=== PATIENT | female | born 1960 | race Caucasian/White ===

== ENCOUNTER 2016-08-19 15:56 | Emergency (ER) | payer OTHER ==
[~2016-08-19] VITALS: Ht 167.6 cm; Wt 78.9 kg
--- NOTE | 2016-08-19 16:47 | RADIOLOGY REPORT ---
EXAMINATION: XR KNEE, RIGHT CLINICAL INFORMATION: Pain and swelling COMPARISON: 08/25/2015 x-ray TECHNIQUE: Four views of the right knee. FINDINGS: There are advanced degenerative changes of the right knee joint involving the patellofemoral and tibiofemoral compartments. There is significant narrowing of the medial tibiofemoral joint space with sclerotic changes of the articular surface of the tibia and femur and juxta-articular osteophytosis. No acute fracture or dislocation. No sizable joint effusion. IMPRESSION: Advanced right knee DJD.
[2016-08-19] MEDS ORDERED: CITALOPRAM HBR20 MG PO (16:56)
[2016-08-19] MEDS ORDERED: NAPROXEN375 M2 PO (16:56)
[2016-08-19] MEDS ORDERED: MULTI-DAY VITA1 EACH PO (16:56)
[2016-08-19] MEDS ORDERED: LORAZEPAM0.5 M1 PO (16:57)
--- NOTE | 2016-08-19 17:30 | ED UPPER/LOWER EXTREMITY COMPL ---
History of Present Illness General Chief Complaint: Lower Extremity Injury Stated Complaint: RT KNEE PAIN Source: patient, old records Exam Limitations: no limitations Vital Signs & Intake/Output Vital Signs & Intake/Output Vital Signs Date Time Temp Pulse Resp B/P B/P Pulse O2 O2 Flow FiO2 Mean Ox Delivery Rate 08/19 1809 99 Room Air 08/19 1805 98.3 89 15 118/78 100 Room Air 08/19 1609 97.6 64 15 117/66 97 Room Air Room Air Allergies Coded Allergies: Penicillins (Intermediate, "SWELLING" PER PT EYES AND FACE 08/19/16) Reconcile Medications Citalopram Hydrobromide (Citalopram HBr) 20 MG TABLET 1 TAB PO DAILY MENTAL HEALTH (Reported) Lorazepam 0.5 MG TABLET 1 TAB PO PRN ANXIETY (Reported) Multivitamin (Multi-Day Vitamins) 1 EACH TABLET 1 TAB PO DAILY SUPPLEMENT ( Reported) Naproxen 375 MG TABLET 1 TAB PO BID PAIN (Reported) with food Triage Note: PT TO ED FOR C/C OF R KNEE PAIN SINCE SUNDAY S/P HITTING KNEE ON BED FRAME. AMBULATORY IN TRIAGE. SAW PCP WHO GAVE HER AN JAMAR WRAP AND MEDS WHICH DIDN'T HELP. Triage Nurses Notes Reviewed? yes HPI: 55F NO PMH, HIT HER KNEE WALKING INTO HER BED FRAME 5 DAYS AGO WITH PERSISTENT RIGHT KNEE PAIN AND WEAKNESS, INABILITY TO EXTEND THE KNEE DUE TO PAIN. NO EVIDENCE OF BLEEDING, NO CALF SWELLING. SAW HER PCP AND WAS KEEPING IT WRAPPED AND TAKING NAPROXEN. NO SYSTEMIC SYMPTOMS, WELL OTHERWISE, NO PRIOR HISTORY OF JOINT PROBLEMS EXCEPT RECENTLY DIAGNOSED WITH OSTEOARTHRITIS OF BOTH KNEES. Past History Travel History Traveled to [place] past 21 day No Medical History Any Pertinent Medical History? see below for history Psychiatric: depression Surgical History Surgical History: non-contributory Psychosocial History What is your primary language Korean Tobacco Use: Never used ETOH Use: occasional use Illicit Drug Use: denies illicit drug use Family History Hx Contributory? No Review of Systems Review of Systems Constitutional: Reports: no symptoms. EENTM: Reports: no symptoms. Respiratory: Reports: no symptoms. Cardiovascular: Reports: no symptoms. Gastrointestinal/Abdominal: Reports: no symptoms. Genitourinary: Reports: no symptoms. Musculoskeletal: Reports: see HPI. Skin: Reports: no symptoms. Neurological/Psychological: Reports: no symptoms. Hematologic/Endocrine: Reports: no symptoms. Immunological: Reports: no symptoms. All Other Systems: Reviewed and Negative Physical Exam Physical Exam General Appearance: well developed/nourished, mild distress Head: atraumatic Eyes: Bilateral: normal appearance. Ears, Nose, Throat: normal pharynx, normal ENT inspection, hearing grossly normal Neck: normal inspection, supple Cardiovascular/Respiratory: regular rate/rhythm Peripheral Pulses: 2+ tibialis posterior (R), 2+ tibialis posterior (L) Back: normal inspection Leg Left: normal range of motion, normal inspection Leg Right: normal inspection, limited range of motion, EXTENSION LIMITED BY PAIN , MILDLY TENDER TO LATERAL PATELLA. NO JOINT INSTABILITY. MILD EFFUSION Skin: intact, normal color, warm/dry Lymphatic: no anterior cervical kaya Progress Differential Diagnosis: arterial insufficiency, cellulitis, CHF, compartment syndrome, contusion, dislocation, DVT, fracture, gout, septic arthritis, sprain, tendon injury Plan of Care: Orders Procedure Date/time Status Durable Medical Equipment 08/19 1746 Active KNEE X-RAY DONE. WILL DISCHARGE WITH ORTHOPEDIC FOLLOW UP, REST, ICE, ELEVATION , NSAIDS (CHINYERE SAHNI,JESSE) Diagnostic Imaging: Viewed by Me: Radiology Read. Discussed w/RAD: Radiology Read. Departure Departure Time of Disposition: 1728 Disposition: HOME OR SELF CARE Condition: Stable Clinical Impression Primary Impression: Right knee sprain Referrals: SARTHAK SAHNI,SEEMA HENRY MD,M. GUTIERREZ (PCP/Family) Additional Instructions: REST, ICE, ELEVATION, COMPRESSION. MAY CONTINUE NAPROXEN. FOLLOW UP WITH ORTHOPEDIC. Departure Forms: Customer Survey General Discharge Information
[2016-08-19 18:05] VITALS: BP 118/78
== END 2016-08-19 18:11 ==
LOC: ERH 15:56
DX: S83.91XA Sprain of unspecified site of right knee, initial encounter (principal); W22.03XA Walked into furniture, initial encounter; Y92.9 Unspecified place or not applicable; Y93.9 Activity, unspecified
CPT/HCPCS: 73560-RT